=== PATIENT | female | born 1965 | race Caucasian/White ===

== ENCOUNTER → 2020-05-25 15:15 | Outpatient (BNVA) | payer OTHER, SELFPAY | PROVIDERS: PCP Internal Medicine; Referring Provider Internal Medicine; Visit Provider Internal Medicine | DX: Z76.89 Persons encountering health services in other specified circumstances (principal) ==

== ENCOUNTER 2020-05-26 11:09 | Outpatient (REF) | payer OTHER, SELFPAY ==
[2020-05-26 15:04] LABS: Albumin Level 4.3 g/dL (3.5-5.0); Calcium 9.2 mg/dL (8.4-10.2); Phosphorus 3.1 mg/dL (2.7-4.5)
[2020-05-26 15:26] LABS: Free T4 (Free Thyroxine) 1.15 ng/dL (0.71-1.85); Thyroid Stimulating Hormone 3.09 mIU/mL (0.32-4.0); Vitamin D 25-OH Total 11.9 ng/mL (>30)
[2020-05-27 13:11] LABS: Calcium (PTHI) 9.2 mg/dL (8.6-10.4); PTHI 64 pg/mL (14-64)
[2020-05-30 13:42] LABS: Alkaline Phosphatase Bone 11.8 mcg/L (5.6-29.0)
[2020-05-30 14:51] LABS: Prot Elec - Albumin 4.1 g/dL (3.8-4.8); Prot Elec - Alpha1 0.3 g/dL (0.2-0.3); Prot Elec - Alpha2 0.8 g/dL (0.5-0.9); Prot Elec - Beta 1 0.5 g/dL (0.4-0.6); Prot Elec - Beta 2 0.4 g/dL (0.2-0.5)
== END 2020-05-26 11:10 | disposition home or self-care (01) ==
LOC: HO.10HDL 11:09
PROVIDERS: Visit Provider Internal Medicine
DX: M81.0 Age-related osteoporosis without current pathological fracture (principal); E55.9 Vitamin D deficiency, unspecified
CPT/HCPCS: 36415; 82040; 82306; 82310; 82330; 83970; 84075; 84100; 84155; 84165; 84439; 84443

== ENCOUNTER 2020-05-28 | Outpatient (REF) | payer OTHER, SELFPAY ==
[2020-05-28 11:13] LABS: Total Volume 24 Hour Urine 2350 mL
[2020-05-28 11:38] LABS: Creatinine, 24Hr Urine 0.9 G/Day (1.0-2.0); Creatinine, mg/dL 36.91
[2020-05-29 21:52] LABS: Calcium, 24 Hr Urine 54 mg/24 h; Calcium/Creatinine Ratio 62 mg/g creat (30-275); Creatinine 24Hr Urine 0.87 g/24 h (0.50-2.15)
[2020-06-03 07:22] LABS: N-Telopeptide 51 (see note); NTXCreaRU 66 mg/dL (20-275)
== END 2020-05-28 00:01 | disposition home or self-care (01) ==
LOC: HO.LNP
PROVIDERS: Visit Provider Internal Medicine
DX: M81.0 Age-related osteoporosis without current pathological fracture (principal)
CPT/HCPCS: 82340; 82523; 82570

== ENCOUNTER → 2020-07-25 08:30 | Outpatient (BNVA) | payer OTHER, SELFPAY | PROVIDERS: PCP Internal Medicine; Visit Provider Internal Medicine | DX: Z76.89 Persons encountering health services in other specified circumstances (principal) ==

== ENCOUNTER → 2020-09-14 13:27 | Outpatient (BNVA) | payer OTHER, SELFPAY | PROVIDERS: PCP Internal Medicine; Visit Provider Internal Medicine ==

== ENCOUNTER 2021-06-16 10:21 | Outpatient (REF) | payer OTHER, SELFPAY ==
[2021-06-16 10:24] LABS: MANUAL DIFF FLAG NO
[2021-06-16 10:29] LABS: Basophils Absolute Auto 0.1 X10*3/uL (0.0-0.2); Eosinophils Absolute Auto 0.3 X10*3/uL (0.0-0.4); Eosinophils Percent Auto 5.5 % (0-4); Hematocrit 46.3 % (37.0-47.0); Hemoglobin 14.5 g/dl (12.0-16.0); Imm Gran Abs Auto 0.01 X10*3/uL (0.00-0.03); Imm Gran Pct Auto 0.2 % (0.0-0.4); Lymphocytes Absolute Auto 2.4 X10*3/uL (1.2-4.9); Lymphocytes Percent Auto 41.5 % (20-40); Mean Corpuscular HGB Conc 31.3 g/dl (31.0-35.0); Mean Corpuscular Hemoglobin 30.4 pg (27.0-33.0); Mean Corpuscular Volume 97.1 fL (80.0-98.0); Mean Platelet Volume 11.8 fL (9.4-12.3); Monocytes Absolute Auto 0.5 X10*3/uL (0.1-1.2); Monocytes Percent Auto 9.3 % (2-11); Neutrophils Absolute Auto 2.5 x10*3/uL (2.0-8.3); Neutrophils Percent Auto 42.5 % (45-73); Platelet Count 233 X10*3/uL (160-400); Red Blood Count 4.77 X10*6/uL (4.20-5.50); Red Cell Distribution Width 13.2 % (11.0-16.0); White Blood Count 5.8 X10*3/uL (4.8-10.8)
[2021-06-16 10:50] LABS: Alanine Aminotransferase 24 U/L (0-31); Albumin Level 4.2 g/dL (3.5-5.0); Alkaline Phosphatase 67 U/L (39-117); Anion Gap 10 (12-20); Aspartate Amino Transferase 23 U/L (5-31); Bilirubin Total 0.5 mg/dL (0.0-1.0); Blood Urea Nitrogen 10 mg/dL (9-16); Calcium 9.5 mg/dL (8.4-10.2); Carbon Dioxide 31 mmol/L (22-29); Chloride 106 mmol/L (96-108); Cholesterol 185 mg/dL; Estimated Glomerular Filt Rate > 60; Glucose Fasting 92 mg/dL (60-99); HDL Cholesterol 53 mg/dL; LDL Cholesterol Calculated 118 mg/dl; Potassium 4.8 mmol/L (3.3-5.1); Sodium 142 mmol/L (135-145); Total Protein 6.8 g/dL (6.5-8.0); Triglycerides 72 mg/dL
[2021-06-16 10:54] LABS: Appearance Urine CLEAR; Color Urine YELLOW; Glucose Urine UA NEG (NEG); Leukocyte Esterase Urine NEG (NEG); Nitrite Urine NEG (NEG); Urine Blood TRACE (NEG); Urine Ketones NEG (NEG); Urine Protein NEG (NEG-TRACE)
[2021-06-16 11:10] LABS: RBC Urine 0-2 /HPF (0); Squamous Epithelial Cell Urine 1+ /LPF; WBC Urine 0 /HPF (0-4)
[2021-06-16 11:12] LABS: Vitamin D 25-OH Total 27.9 ng/mL (>30)
[2021-06-16 11:39] LABS: Reflex LDLD? No
== END 2021-06-16 10:22 | disposition home or self-care (01) ==
LOC: HO.LNP 10:21
PROVIDERS: Visit Provider Internal Medicine
DX: Z00.00 Encounter for general adult medical examination without abnormal findings (principal); E55.9 Vitamin D deficiency, unspecified; D72.820 Lymphocytosis (symptomatic); M81.0 Age-related osteoporosis without current pathological fracture
CPT/HCPCS: 80053; 80061; 81001; 82306; 85025

== ENCOUNTER 2021-10-20 10:58 | Outpatient (REF) | payer OTHER, SELFPAY ==
[2021-10-20 12:00] LABS: Hematocrit 44.2 % (37.0-47.0); Hemoglobin 13.8 g/dl (12.0-16.0); Mean Corpuscular HGB Conc 31.2 g/dl (31.0-35.0); Mean Corpuscular Hemoglobin 30.9 pg (27.0-33.0); Mean Corpuscular Volume 98.9 fL (80.0-98.0); Mean Platelet Volume 10.6 fL (9.4-12.3); Platelet Count 231 X10*3/uL (160-400); Red Blood Count 4.47 X10*6/uL (4.20-5.50); Red Cell Distribution Width 13.1 % (11.0-16.0); White Blood Count 5.7 X10*3/uL (4.8-10.8)
[2021-10-20 12:40] LABS: Anion Gap 11 (12-20); Blood Urea Nitrogen 14 mg/dL (9-16); Calcium 9.9 mg/dL (8.4-10.2); Carbon Dioxide 30 mmol/L (22-29); Chloride 103 mmol/L (96-108); Estimated Glomerular Filt Rate > 60; Glucose Random 86 mg/dL (60-115); Sodium 139 mmol/L (135-145)
== END 2021-10-20 10:59 | disposition home or self-care (01) ==
LOC: HO.LAB 10:58
PROVIDERS: PCP Internal Medicine; Visit Provider Otolaryngology
DX: R49.0 Dysphonia (principal)
CPT/HCPCS: 36415; 80048; 85027

== ENCOUNTER 2022-01-19 12:12 | Outpatient (REF) | payer OTHER, SELFPAY ==
[2022-01-19 12:57] LABS: Cholesterol 182 mg/dL; HDL Cholesterol 57 mg/dL; LDL Cholesterol Calculated 107 mg/dl; Triglycerides 91 mg/dL
== END 2022-01-19 12:13 | disposition home or self-care (01) ==
LOC: HO.LNP 12:12
PROVIDERS: Visit Provider Internal Medicine
DX: I70.0 Atherosclerosis of aorta (principal)
CPT/HCPCS: 80061

== ENCOUNTER 2022-06-26 11:54 | Outpatient (REF) | payer OTHER, SELFPAY ==
[2022-06-26 11:56] LABS: MANUAL DIFF FLAG NO
[2022-06-26 12:16] LABS: Basophils Absolute Auto 0.1 X10*3/uL (0.0-0.2); Eosinophils Absolute Auto 0.4 X10*3/uL (0.0-0.4); Eosinophils Percent Auto 6.4 % (0-4); Hematocrit 45.8 % (37.0-47.0); Hemoglobin 14.4 g/dl (12.0-16.0); Imm Gran Abs Auto 0.01 X10*3/uL (0.00-0.03); Imm Gran Pct Auto 0.2 % (0.0-0.4); Lymphocytes Absolute Auto 2.4 X10*3/uL (1.2-4.9); Lymphocytes Percent Auto 40.4 % (20-40); Mean Corpuscular HGB Conc 31.4 g/dl (31.0-35.0); Mean Corpuscular Hemoglobin 31.2 pg (27.0-33.0); Mean Corpuscular Volume 99.1 fL (80.0-98.0); Mean Platelet Volume 11.3 fL (9.4-12.3); Monocytes Absolute Auto 0.5 X10*3/uL (0.1-1.2); Monocytes Percent Auto 8.2 % (2-11); Neutrophils Absolute Auto 2.6 x10*3/uL (2.0-8.3); Neutrophils Percent Auto 43.8 % (45-73); Platelet Count 199 X10*3/uL (160-400); Red Blood Count 4.62 X10*6/uL (4.20-5.50); Red Cell Distribution Width 13.2 % (11.0-16.0)
[2022-06-26 12:18] LABS: Appearance Urine Clear; Color Urine Yellow; Glucose Urine UA Negative (Negative); Leukocyte Esterase Urine Small (1+) (Negative); Nitrite Urine Negative (Negative); UMIC TRIGGER UA YES; Urine Blood Trace (Negative); Urine Ketones Negative (Negative); Urine Protein Negative (Neg-Trace)
[2022-06-26 12:26] LABS: Bacteria Urine None Seen (None Seen); Hyaline Casts Urine 0-2 /LPF (0-2); RBC Urine 0-2 /HPF (0-2); WBC Urine 0-5 /HPF (0-5)
[2022-06-26 12:31] LABS: Alanine Aminotransferase 38 U/L (0-31); Albumin Level 4.3 g/dL (3.5-5.0); Alkaline Phosphatase 80 U/L (39-117); Anion Gap 14 (12-20); Aspartate Amino Transferase 31 U/L (5-31); Bilirubin Total 0.7 mg/dL (0.0-1.0); Blood Urea Nitrogen 23 mg/dL (9-16); Calcium 9.5 mg/dL (8.4-10.2); Carbon Dioxide 28 mmol/L (22-29); Chloride 104 mmol/L (96-108); Cholesterol 143 mg/dL; Estimated Glomerular Filt Rate > 60; Glucose Fasting 84 mg/dL (60-99); HDL Cholesterol 58 mg/dL; LDL Cholesterol Calculated 74 mg/dl; Potassium 4.6 mmol/L (3.3-5.1); Sodium 141 mmol/L (135-145); Total Protein 7.1 g/dL (6.5-8.0); Triglycerides 58 mg/dL
[2022-06-26 12:53] LABS: Vitamin D 25-OH Total 24.7 ng/mL (>30)
== END 2022-06-26 11:55 | disposition home or self-care (01) ==
LOC: HO.LNP 11:54
PROVIDERS: Visit Provider Internal Medicine
DX: Z00.00 Encounter for general adult medical examination without abnormal findings (principal); E55.9 Vitamin D deficiency, unspecified; D72.820 Lymphocytosis (symptomatic)
CPT/HCPCS: 80053; 80061; 81001; 82306; 85025

== ENCOUNTER 2022-07-03 16:16 | Outpatient (REF) | payer OTHER, SELFPAY ==
[2022-07-03 16:42] LABS: Blood Urea Nitrogen 10 mg/dL (9-16)
== END 2022-07-03 16:17 | disposition home or self-care (01) ==
LOC: HO.LNP 16:16
PROVIDERS: Visit Provider Internal Medicine
DX: R79.9 Abnormal finding of blood chemistry, unspecified (principal)
CPT/HCPCS: 84520

== ENCOUNTER 2023-06-27 10:31 | Outpatient (REF) | payer OTHER, SELFPAY ==
[2023-06-27 10:36] LABS: MANUAL DIFF FLAG NO
[2023-06-27 10:42] LABS: Basophils Absolute Auto 0.1 X10*3/uL (0.0-0.2); Basophils Percent Auto 1.5 % (0-2); Eosinophils Absolute Auto 0.5 X10*3/uL (0.0-0.4); Eosinophils Percent Auto 8.5 % (0-4); Hematocrit 45.5 % (37.0-47.0); Hemoglobin 14.2 g/dl (12.0-16.0); Imm Gran Abs Auto 0.01 X10*3/uL (0.00-0.03); Imm Gran Pct Auto 0.2 % (0.0-0.4); Lymphocytes Absolute Auto 2.2 X10*3/uL (1.2-4.9); Lymphocytes Percent Auto 35.7 % (20-40); Mean Corpuscular HGB Conc 31.2 g/dl (31.0-35.0); Mean Corpuscular Hemoglobin 30.7 pg (27.0-33.0); Mean Corpuscular Volume 98.5 fL (80.0-98.0); Mean Platelet Volume 11.4 fL (9.4-12.3); Monocytes Absolute Auto 0.5 X10*3/uL (0.1-1.2); Monocytes Percent Auto 8.2 % (2-11); Neutrophils Absolute Auto 2.8 x10*3/uL (2.0-8.3); Neutrophils Percent Auto 45.9 % (45-73); Platelet Count 228 X10*3/uL (160-400); Red Blood Count 4.62 X10*6/uL (4.20-5.50); Red Cell Distribution Width 13.2 % (11.0-16.0); White Blood Count 6.1 X10*3/uL (4.8-10.8)
[2023-06-27 10:49] LABS: Appearance Urine Clear; Color Urine Yellow; Glucose Urine UA Negative (Negative); Leukocyte Esterase Urine Negative (Negative); Nitrite Urine Negative (Negative); PH 5.5 (5.0-9.0); UMIC TRIGGER UACC YES; Urine Blood Trace (Negative); Urine Ketones Negative (Negative); Urine Protein Negative (Neg-Trace)
[2023-06-27 10:53] LABS: Bacteria Urine None Seen (None Seen); RBC Urine 0-2 /HPF (0-2); Squamous Epithelial Cell Urine 0-2 /HPF (0-2); WBC Urine 0-5 /HPF (0-5)
[2023-06-27 10:59] LABS: Alanine Aminotransferase 24 U/L (0-31); Albumin Level 4.2 g/dL (3.5-5.0); Alkaline Phosphatase 65 U/L (39-117); Anion Gap 12 (12-20); Aspartate Amino Transferase 24 U/L (5-31); Bilirubin Total 0.5 mg/dL (0.0-1.0); Blood Urea Nitrogen 17 mg/dL (9-16); Calcium 9.5 mg/dL (8.4-10.2); Carbon Dioxide 28 mmol/L (22-29); Chloride 105 mmol/L (96-108); Cholesterol 185 mg/dL (<200); Estimated Glomerular Filt Rate > 60; Glucose Fasting 95 mg/dL (60-99); HDL Cholesterol 52 mg/dL (>40); LDL Cholesterol Calculated 118 mg/dL (<100); Sodium 141 mmol/L (135-145); Total Protein 7.5 g/dL (6.5-8.0); Triglycerides 77 mg/dL (<150)
[2023-06-27 11:17] LABS: Vitamin D 25-OH Total 38.7 ng/mL (>30)
== END 2023-06-27 10:32 | disposition home or self-care (01) ==
LOC: HO.LNP 10:31
PROVIDERS: Visit Provider Internal Medicine
DX: Z00.00 Encounter for general adult medical examination without abnormal findings (principal); D72.829 Elevated white blood cell count, unspecified; E55.9 Vitamin D deficiency, unspecified; I70.0 Atherosclerosis of aorta
CPT/HCPCS: 80053; 80061; 81001; 82306; 85025

== ENCOUNTER 2024-07-02 11:25 | Outpatient (REF) | payer OTHER, SELFPAY ==
[2024-07-02 11:33] LABS: MANUAL DIFF FLAG NO
[2024-07-02 12:08] LABS: Basophils Absolute Auto 0.1 X10*3/uL (0.0-0.2); Basophils Percent Auto 1.3 % (0-2); Eosinophils Absolute Auto 0.5 X10*3/uL (0.0-0.4); Eosinophils Percent Auto 7.6 % (0-4); Hematocrit 48.6 % (37.0-47.0); Hemoglobin 15.3 g/dl (12.0-16.0); Imm Gran Abs Auto 0.02 X10*3/uL (0.00-0.03); Imm Gran Pct Auto 0.3 % (0.0-0.4); Lymphocytes Absolute Auto 2.9 X10*3/uL (1.2-4.9); Lymphocytes Percent Auto 41.5 % (20-40); Mean Corpuscular HGB Conc 31.5 g/dl (31.0-35.0); Mean Corpuscular Hemoglobin 30.9 pg (27.0-33.0); Mean Corpuscular Volume 98.2 fL (80.0-98.0); Mean Platelet Volume 10.8 fL (9.4-12.3); Monocytes Absolute Auto 0.5 X10*3/uL (0.1-1.2); Monocytes Percent Auto 6.9 % (2-11); Neutrophils Absolute Auto 2.9 x10*3/uL (2.0-8.3); Neutrophils Percent Auto 42.4 % (45-73); Platelet Count 233 X10*3/uL (160-400); Red Blood Count 4.95 X10*6/uL (4.20-5.50); Red Cell Distribution Width 13.2 % (11.0-16.0); White Blood Count 6.9 X10*3/uL (4.8-10.8)
[2024-07-02 12:40] LABS: Alanine Aminotransferase 31 U/L (0-31); Albumin Level 4.3 g/dL (3.5-5.0); Alkaline Phosphatase 84 U/L (39-117); Anion Gap 14 (12-20); Aspartate Amino Transferase 37 U/L (5-31); Bilirubin Total 0.7 mg/dL (0.0-1.0); Blood Urea Nitrogen 17 mg/dL (9-16); Calcium 9.7 mg/dL (8.4-10.2); Carbon Dioxide 30 mmol/L (22-29); Chloride 105 mmol/L (96-108); Cholesterol 215 mg/dL (<200); Estimated Glomerular Filt Rate 57; Glucose Fasting 97 mg/dL (60-99); HDL Cholesterol 59 mg/dL (>40); LDL Cholesterol Calculated 142 mg/dL (<100); Potassium 4.6 mmol/L (3.3-5.1); Sodium 144 mmol/L (135-145); Total Protein 7.9 g/dL (6.5-8.0); Triglycerides 74 mg/dL (<150)
[2024-07-02 12:48] LABS: Vitamin D 25-OH Total 35.8 ng/mL (>30)
== END 2024-07-02 11:26 | disposition home or self-care (01) ==
LOC: HO.LNP 11:25
PROVIDERS: Visit Provider Internal Medicine
DX: Z00.00 Encounter for general adult medical examination without abnormal findings (principal); E55.9 Vitamin D deficiency, unspecified; D72.820 Lymphocytosis (symptomatic)
CPT/HCPCS: 80053; 80061; 82306; 85025

== ENCOUNTER 2024-07-09 15:54 | Outpatient (REF) | payer OTHER, SELFPAY ==
--- OUTSIDE RECORDS SUMMARY | 2024-07-09 15:58 | XMS_ITS ---
Author Organization Anderson Maria MD Address [address] [place] [phone] Care Team Providers Care Senior Director Name Role Phone Anderson Maria Primary Care Provider REASON FOR VISIT refill MEDICATIONS Medication SIG (Take, Route, Frequency, Duration) Notes Start Date End Date Status Albuterol Sulfate HFA 108 (90 Base) MCG/ACT INHALE TWO PUFFS BY MOUTH EVERY 4-6 HOURS NEEDED Inhalation every 4 hrs for 30 days Active Encounters Encounter Location Date Provider Diagnosis Anderson Maria MD [address] [facility] [address] [place] [phone] 05/14/2024 Anderson Maria PLAN OF TREATMENT Medication Medication Name Sig Start Date Stop Date Notes Albuterol Sulfate HFA 108 (9 0 Base) MCG/ACT INHALE TWO PUFFS BY MOUTH EVERY 4-6 HOURS NEEDED Inhalation every 4 hrs for 30 days Next Appt Details Provider Name:Anderson nava, 07/09/2025 07:00:00 AM, [address], Suite [facility], [place], [place], [phone], Provider Name:Anderson nava, 07/16/2025 11:00:00 AM, [address] [place] [address] Drive, [address], RANDI Shankar, [phone],
--- OUTSIDE RECORDS SUMMARY | 2024-07-09 15:58 | XMS_ITS ---
Author Organization Anderson Maria MD Address [address] [place], [place] [phone] Care Team Providers Care Front Office Associate Name Role Phone Anderson Maria Primary Care Provider ALLERGIES Allergen (clinical drug ingredient) Drug/Non Drug Allergy documented on EMR Reaction Allergy Type Onset Date Status morphine Morphine Sulfate headache Drug Allergy Active hydromorphone Dilaudid headache Drug Allergy Act manny acetaminophen / oxycodone percocet (uncoded) vomiting Allergy Active carisoprodol soma (uncoded) vomiting Allergy Ac tive tylox (uncoded) vomiting Allergy Acti ve REASON FOR REFERRAL Reason needs colonoscopy Diagnosis 1 Colon cancer screeni (Z12.11) Referral Organization Anderson Maria MD Referring Provider First Name Anderson Referring Provider Last Name Crow Referring Provider Speciality Internal M edicine Referred Provider Hugh Johns Referred Provider Specialty Gastroentero logy General Notes Jacqui Marrero 11:37:08 AM EST > info faxed Referral Priority Routine REASON FOR VISIT ANNUAL EXAM MEDICATIONS Medication SIG (Take, Route, Frequency, Duration) Notes Start Date End Date Status Fluticasone Propionate (Inhal) 50 MCG/ACT 1 puff Inhalation Twice a day Active Fluticasone-Salmeterol 500-50 MCG/ACT INHALE ONE PUFF TWO TIMES A DAY for 30 Active Albuterol Sulfate HFA 108 (90 Base) MCG/ACT INHALE TWO PUFFS BY MOUTH EVERY 4-6 HOURS NEEDED Inhalation every 4 hrs for 30 days Active Hydrocortisone Mitchel-Pramoxine 2.5-1 % 1 application to affected area as needed Rectal once times a day for 30 days 10/11/2014 Not-Taking SOCIAL HISTORY Tobacco Use: Social History Observation Description Date Details (start date - stop date) Former Smoker NA - NA Sex Assigned At : Social History Observation Description Sex Assigned At Unknown Tobacco Use/Smoking Question Answer Notes Patient is a former smoker How long has it been since y ou last smoked? > 10 years Additional Findings: Tobacco Non-User Fo rmer smoker, currently using no form of tobacco Alcohol Screen Question Answer Notes Did you have a drink contain ing alcohol in the past year? Yes How often did you have a dri nk containing alcohol in the past year? Monthly or less (1 point) How many drinks did you have on a typical day when you were drinking in the past year? 1 or 2 drinks (0 point) How often did you have 6 or more drinks on one occasion in the past year? Never (0 point) Points 1 Interpretation Negative VITAL SIGNS BMI 28.12 kg/m2 07/09/2024 Blood pressure systolic 124 mm Hg 07/09/20 24 Blood pressure diastolic 70 mm Hg 024 Height 60 in 07/09/2024 Weight 144 lbs 07/09/2024 Encounters Encounter Location Date Provider Diagnosis Anderson Maria MD [address] [place] [address] [place] [phone] 07/09/2024 Anderson Maria Annual visit for general adult medical examination with abnormal findings Z00.01 ; De Quervain's tenosynovitis M65.4 and Subcutaneous nodule R22.9 ASSESSMENTS Encounter Date Diagnosis Assessment Notes Treatment Notes Treatment Clinical Notes 07/09/2024 Annual visit for general adult medical examination with abnormal findings (ICD-10 - Z00.01) needs appt with dr johns for colonoscopy 07/09/2024 De Quervain's tenosynovitis (ICD-10 - M65.4) if it gets worse to send to [facility] 07/09/2024 Subcutaneous nodule (ICD-10 - R22.9) feels benign will just observe PLAN OF TREATMENT Treatment Notes Assessment Notes Annual visit for general arjun lt medical examination with abnormal findings needs appt with dr johns for colonoscopy De Quervain's tenosynovitis if it gets w orse to send to [facility] Subcutaneous nodule feels benign will karma st observe Pending Test Test Name Order Date UA ClnCatch+Micro w/rflx Cult 07/09/2024 Referrals Referral Date Details needs colonoscopy , Hugh Johns Next Appt Details Follow Up: 1 Year, Reason: Provider Name:Anderson Farris ier, 07/09/2025 07:00:00 AM, [address], [address], [place], [place], [phone], Provider Name:Anderson Farris ier, 07/16/2025 11:00:00 AM, [address] [facility], [address], [place], [place], [phone], Progress Notes * Examination Category Sub-Category Detail Notes General Examination GENERAL APPEARANCE: well dev eloped, well nourished, in no acute distress HEAD: normocephalic, atrau matic EYES: pupils equal, round, reactive to light and accommodation, sclera non- icteric EARS: normal THROAT: clear NECK/THYROID: neck supple, full ra nge of motion, no cervical lymphadenopathy, no bruits HEART: regular rate and rhy thm, S1, S2 normal, no murmurs LUNGS: clear to auscultatio n bilaterally ABDOMEN: soft, nontender, non distended, bowel sounds present, normal, no organomegaly , no masses palpable NEUROLOGIC: nonfocal, motor stre ngth normal upper and lower extremities, sensory exam intact SKIN: warm and dry, no dereje picious lesions EXTREMITIES: no clubbing, cyanosi s, or edema BREASTS: No mass, no lump RECTAL EXAM: no masses palpable , stool guaiac negative FEMALE GENITOURINARY: rt labia majora wi th a 3 mm sub cutaneous nodule ORAL CAVITY: mucosa moist History and Physical Notes * HPI (History of Present Illness) Category Sub-Category Detail Notes Depression Screening PHQ-9 Little inte rest or pleasure in doing things: Not at all Feeling down, depressed, or hopeless: No t at all Trouble falling or staying asleep, or sl eeping too much: Not at all Feeling tired or having little energy: N ot at all Poor appetite or overeating: Not at all Feeling bad about yourself o r that you are a failure, or have let yourself or your family down: Not at all Trouble concentrating on thi ngs, such as reading the newspaper or watching television: Not at all Moving or speaking so slowly that other people could have noticed; or the opposite, being so fidgety or restless that you have been moving around a lot more than usual: Not at all Thoughts that you would be b alicia off or of hurting yourself in some way: Not at all Total Score: 0 Interpretation and Intervention Depression Angela almaraz Findings: Negative Follow-Up for Depression: : review of PH Q-9 found negative result, no follow-up needed SDOH Questions SDOH Questions In the past year have you been worried about losing housing?: No In the past year have you or any family members you live with been unable to get any of the following when it was really needed? Check all that apply:: None Communication Needs Communication Needs Does the patient have a hearing impairment: No Does the patient have a vision impairmen t?: Yes ?If yes, what is the vision impairment?: Glasses Does the patient have a cognition impair ment?: No Consultation Request Notes Referral Date Referring Provider Referred Provider Not paresh 07/09/2024 Anderson Maria Robert needs colo noscopy
--- OUTSIDE RECORDS SUMMARY | 2024-07-09 15:58 | XMS_ITS ---
Author Organization Anderson Maria MD Address [address] [place], [place] [phone] Care Team Providers Care Industrial Psychology Teacher Name Role Phone Anderson Maria Primary Care Provider [phone] RESULTS Component Value Reference Range Notes Complete Blood Count Auto Di ff Reviewed date:07/02/2024 12:51:24 PM Interpretation: Performing Lab:[facility], [address] [place] [phone] Notes/Report: White Blood Count 6.9 4.8-10.8 X10*3/uL Red Blood Count 4.95 4.20-5.50 X10*6/uL Hemoglobin 15.3 12.0-16.0 g/dl Hematocrit 48.6 37.0-47.0 % Mean Corpuscular Volume 98.2 80.0-98.0 fL Mean Corpuscular Hemoglobin 30.9 27.0-33.0 pg Mean Corpuscular HGB Conc 31.5 31.0-35.0 g/dl Red Cell Distribution Width 13.2 11.0-16.0 % Platelet Count 233 160-400 X10*3/uL Mean Platelet Volume 10.8 9.4-12.3 fL Neutrophils Percent Auto 42.4 45-73 % Imm Gran Pct Auto 0.3 0.0-0.4 % Lymphocytes Percent Auto 41.5 20-40 % Monocytes Percent Auto 6.9 2-11 % Eosinophils Percent Auto 7.6 0-4 % Basophils Percent Auto 1.3 0-2 % NRBC Pct Auto 0.0 0.0-0.2 /100WBC Neutrophils Absolute Auto 2.9 2.0-8.3 x10*3/u L Imm Gran Abs Auto 0.02 0.00-0.03 X10*3/uL Lymphocytes Absolute Auto 2.9 1.2-4.9 X10*3/u L Monocytes Absolute Auto 0.5 0.1-1.2 X10*3/uL Eosinophils Absolute Auto 0.5 0.0-0.4 X10*3/u L Basophils Absolute Auto 0.1 0.0-0.2 X10*3/uL NRBC Abs Auto 0.000 0.0-0.012 X10*3/uL Comprehensive [place]. Panel Fa st Reviewed date:07/02/2024 03:33:41 PM Interpretation: Performing Lab:[facility], [address] [place] [phone] Notes/Report: Sodium 144 135-145 mmol/L Potassium 4.6 3.3-5.1 mmol/L Chloride 105 96-108 mmol/L Carbon Dioxide 30 22-29 mmol/L Anion Gap 14 12-20 Blood Urea Nitrogen 17 9-16 mg/dL Creatinine 0.99 0.5-1.4 mg/dL Estimated Glomerular Filt Rate 57 Chronic Kidney Disease: Estimated GFR < 60 mL/min/1.73m2 Severe Kidney Disease: Estimated GFR < 15 mL/min/1.73m2 Glucose Fasting 97 60-99 mg/dL Calcium 9.7 8.4-10.2 mg/dL Bilirubin Total 0.7 0.0-1.0 mg/dL Aspartate Amino Transferase 37 5-31 U/L Alanine Aminotransferase 31 0-31 U/L Total Protein 7.9 6.5-8.0 g/dL Albumin Level 4.3 3.5-5.0 g/dL Alkaline Phosphatase 84 39-117 U/L Lipid Panel Reviewed date:07/02/2024 12:52:39 PM Interpretation: Performing Lab:[facility], [address] [place] [phone] Notes/Report: Triglycerides 74 <150 mg/dL Desirable Triglyceride: less than 150 mg/dL Borderline High Triglyceride 150-199 mg/dL High Triglyceride: 200-499 mg/dL Very High Triglyceride: greater than or equal to 5OO mg/dL Cholesterol 215 <200 mg/dL Desirable Cholesterol: less than 200 mg/dL Borderline High Cholesterol: 200-239 mg/dL High Cholesterol: greater than 239 mg/dL LDL Cholesterol Calculated 142 <100 mg/dL Desirable LDL: less than 100 mg/dL Near Optimal/Above Optimal LDL: 110-129 mg/dL Borderline High LDL: 130-159 mg/dL High LDL: 160-189 mg/dL Very High LDL: greater than or equal to 190 mg/dL HDL Cholesterol 59 >40 mg/dL Desirable HDL: greater than 40 mg/dL Note: This HDL assay may give artificially low results in patients with liver disease. Vitamin D 25-OH Total Reviewed date:07/02/2024 12:53:43 PM Interpretation: Performing Lab:[facility], [address] [place] [phone] Notes/Report: Vitamin D 25-OH Total 35.8 >30 ng/mL Health Based Reference Values* < 20 ng/mL Deficient 20-30 ng/mL Insufficient > 30 ng/mL Sufficient *Malina FISHER. N Engl J Med. 2007;357:266-280 Care must be taken in interpreting Vitamin D results from different laboratories and methodologies. Published data demonstrated that results from patients undergoing hemodialysis may show a negative bias when tested with various automated 25-OH vitamin D assays when compared to LC-MS/MS. When testing samples from patients whose predominant form of Vitamin D is Vitamin D2, such as patients receiving Vitamin D2 supplementation, results that are subtherapeutic should be confirmed with another method such as LC-MS/MS. REASON FOR VISIT ANNUAL FASTING LABS Encounters Encounter Location Date Provider Diagnosis Anderson Maria MD [address] [place] [address] Drive [address] [place], [place] [phone] 07/02/2024 Anderson Maria Blood tests for routine general physical examination Z00.00 ; Lymphocytosis D72.820 and Vitamin D deficiency E55.9 ASSESSMENTS Encounter Date Diagnosis Assessment Notes Treatment Notes Treatment Clinical Notes 07/02/2024 Blood tests for routine general physical examination (ICD-10 - Z00.00) 07/02/2024 Lymphocytosis (ICD-1 0 - D72.820) 07/02/2024 Vitamin D deficiency (ICD-10 - E55.9) PLAN OF TREATMENT Pending Test Test Name Order Date UA ClnCatch+Micro w/rflx Cult 07/02/2024 Next Appt Details Provider Name:Anderson nava, 07/09/2025 07:00:00 AM, [address] [place] [address], [address], [place], [place], [phone], Provider Name:Anderson nava, 07/16/2025 11:00:00 AM, [address] [place] [address], [address], [place], [place], [phone],
--- OUTSIDE RECORDS SUMMARY | 2024-07-09 15:58 | XMS_ITS | Patient Health Record ---
Author Organization Anderson Maria MD Address [address] [place], [place] [phone] Care Team Providers Care Regulatory And Compliance Technician Name Role Phone Anderson Maria Primary Care Provider [phone] ALLERGIES Allergen (clinical drug ingredient) Drug/Non Drug Allergy documented on EMR Reaction Allergy Type Onset Date Status morphine Morphine Sulfate headache Drug Allergy Active hydromorphone Dilaudid headache Drug Allergy Act manny acetaminophen / oxycodone percocet (uncoded) vomiting Allergy Active carisoprodol soma (uncoded) vomiting Allergy Ac tive tylox (uncoded) vomiting Allergy Acti ve RESULTS Component Value Reference Range Notes MAMMOGRAM DIGITAL BILATERAL SCREEN Reviewed date:04/23/2024 11:55:04 AM Interpretation:Negative Performing Lab: Notes/Report: Negative Complete Blood Count Auto Di ff Reviewed date:07/02/2024 12:51:24 PM Interpretation: Performing Lab:[facility], [address] [place] [phone] Notes/Report: White Blood Count 6.9 4.8-10.8 X10*3/uL [...] NRBC Abs Auto 0.000 0.0-0.012 X10*3/uL Comprehensive [place]. Panel Fa st Reviewed date:07/02/2024 03:33:41 PM Interpretation: Performing Lab:[facility], [address] [place] [phone] Notes/Report: Sodium 144 135-145 mmol/L Potassium 4.6 [...] Panel Reviewed date:07/02/2024 12:52:39 PM Interpretation: Performing Lab:[address] [phone] Notes/Report: Triglycerides 74 <150 mg/dL Desirable Triglyceride: [...] Total Reviewed date:07/02/2024 12:53:43 PM Interpretation: Performing Lab:[address] [phone] Notes/Report: Vitamin D 25-OH Total 35.8 >30 [...] another method such as LC-MS/MS. REASON FOR REFERRAL Reason needs colonoscopy Diagnosis 1 Colon cancer screeni jeannie (Z12.11) Referral Organization Anderson Maria MD Referring Provider First Name Anderson Referring Provider Last Name Crow Referring Provider Speciality Internal M edicine Referred Provider Hugh Johns Referred Provider Specialty Gastroentero logy General Notes Jacqui Marrero 11:37:08 AM EST > info faxed Referral Priority Routine MEDICATIONS Medication SIG (Take, Route, Frequency, Duration) [...] a day for 30 days 10/11/2014 Not-Taking IMMUNIZATIONS Vaccine Route Administration Date Status Comme nts DECLINED, FLU Unknown 07/03/2013 Administered Flu Vaccine Unknown 10/11/2014 Refused PPSV23 (Pnemovax) Unknown 10/11/2014 Refused Flu Vaccine Unknown 05/02/2015 Refused Fluarix Quadrivalent Unknown 07/10/2016 Refused Fluarix Quadrivalent Unknown 06/16/2019 Refused PPSV23 (Pnemovax) Unknown 09/28/2019 Refused Fluarix Quadrivalent Unknown 05/05/2020 Refused TDaP Unknown 05/05/2020 Refused Covid Vaccine Unknown 06/29/2021 Refused Fluarix Quadrivalent Unknown 06/29/2021 Refused Fluarix Quadrivalent Unknown 06/27/2023 Refused SOCIAL HISTORY Tobacco Use: Social History Observation [...] Never (0 point) Points 1 Interpretation Negative PROBLEMS Problem Type ICD Code Onset Dates Problem Status W/U Status Risk SNOMED Code Notes Problem Age-related osteoporosis without current pathological fracture (M81.0) Active confirmed 28823331 Problem Lymphocytosis (D72.820) Active confirmed 69755143 Problem Atherosclerosis of abdominal aorta (I70.0) Active confirmed 421855472 Problem Vitamin D deficiency (E55.9) Active confirmed 42791585 Problem Panlobular emphysema (J43.1) Active confirmed 5768747 Problem Lumbar disc disease (M51.9) Active confirmed 406553718 Problem Vaginal bleeding (N93.9) Active confirmed 907978227 Problem Grief (F43.20) Active confirmed 7095278 09 Problem Acute asthma (J45.909) Active confirmed Acute asthma (799962075) Problem Disorder of lingual tonsil (J35.9) Active confirmed 255663472 VITAL SIGNS Blood pressure diastolic 70 mm Hg 07/09/2024 Height 60 in 07/09/2024 Blood pressure systolic 124 mm Hg 07/09/2024 Weight 144 lbs 07/09/2024 BMI 28.12 kg/m2 07/09/2024 Encounters Encounter Location Date Provider Diagnosis Anderson Maria MD [address] [place] [id number] 07/09/2024 Anderson Maria Annual visit for general adult medical examination with abnormal findings Z00.01 ; De Quervain's tenosynovitis M65.4 and Subcutaneous nodule R22.9 Anderson Maria MD [address] [place] [id number] 07/02/2024 Anderson Maria Blood tests for routine general physical examination Z00.00 ; Lymphocytosis D72.820 and Vitamin D deficiency E55.9 Anderson Maria MD [address] [place] [address] Drive [address] [place] [id number] 11/21/2023 Anderson Maria Lumbar disc disease M51.9 Anderson Maria MD [address] [place] [id number] 08/02/2023 Anderson Maria Panlobular emphysema J43.1 Anderson Maria MD [address] [place] [id number] 11/04/2023 Anderson Maria Panlobular emphysema J43.1 Anderson Maria MD [address] [place] [id number] 11/18/2023 Anderson Maria MD [address] [place] [id number] 01/06/2024 Anderson Maria MD [address] [place] [id number] 01/06/2024 Anderson Maria Panlobular emphysema J43.1 Anedrson Maria MD [address] [place] [id number] 01/07/2024 Anderson Maria MD [address] [place] [id number] 05/14/2024 Anderson Maria ASSESSMENTS Encounter Date Diagnosis Assessment Notes Treatment Notes Treatment Clinical Notes 07/09/2024 De Quervain's tenosynovitis (ICD-10 - M65.4) if it gets worse to send to [facility] 07/09/2024 Annual visit for general adult medical examination with abnormal findings (ICD-10 - Z00.01) needs appt with dr johns for colonoscopy 07/02/2024 Lymphocytosis (ICD-10 - D72.820) 07/02/2024 Blood tests for routine general physical examination (ICD-10 - Z00.00) 11/21/2023 Lumbar disc disease (ICD-10 - M51.9) need ct report from .is getting better at present/ at present time she is improving/ REQUEST MADE TO [facility] FOR CT SCAN 08/02/2023 Panlobular emphysema (ICD-10 - J43.1) 11/04/2023 Panlobular emphysema (ICD-10 - J43.1) 01/06/2024 Panlobular emphysema (ICD-10 - J43.1) 07/09/2024 Subcutaneous nodule (ICD-10 - R22.9) feels benign will just observe 07/02/2024 Vitamin D deficiency (ICD-10 - E55.9) PLAN OF TREATMENT Pending Test Test Name Order Date Electrocardiogram (EKG) 10/20/2015 CARDIOVASCULAR STRESS TEST 10/20/2015 MRI LUMBAR SPINE NO CONTRAST 01/26/2020 BONE DENSITY DEXA 02/08/2020 CT soft tissue neck wo/w con 06/29/2021 UA ClnCatch+Micro w/rflx Cult 07/02/2024 UA ClnCatch+Micro w/rflx Cult 07/09/2024 Next Appt Details Provider Name:Anderson Farris ier, 07/09/2025 07:00:00 AM, [address] [place] [address], [address], [place], [phone], Provider Name:Anderson Farris ier, 07/16/2025 11:00:00 AM, [address] [place] [address], [address], [place], [place], [phone], Insurance Providers Payer Name Payer Address Payer Phone Subscriber Number Group Number Insured Name Patient Relationship to Insured Coverage Start Date Coverage End Date [employer] [address] [address] [place] [address] [phone] [id number] Shira Astudillo Self - patient is the insured MEDICAL (GENERAL) HISTORY Medical History History ICD Code Hysterectomy at age 39 [employer], Dr. Major, [facility] Mammo at [facility] 11/23/2013 - Colonoscopy with Dr. Johns - repeat [address] for hematuria in 2005
[2024-07-09 16:29] LABS: Appearance Urine Clear; Color Urine Yellow; Glucose Urine UA Negative (Negative); Leukocyte Esterase Urine Negative (Negative); Nitrite Urine Negative (Negative); PH 5.5 (5.0-9.0); Specific Gravity - Urine <= 1.005 (1.005-1.025); Urine Blood Negative (Negative); Urine Ketones Negative (Negative); Urine Protein Negative (Neg-Trace)
[2024-07-09 16:34] LABS: Bacteria Urine None Seen (None Seen); Hyaline Casts Urine 0-2 /LPF (0-2); RBC Urine 0-2 /HPF (0-2); Squamous Epithelial Cell Urine 0-2 /HPF (0-2); WBC Urine 0-5 /HPF (0-5)
== END 2024-07-09 15:55 | disposition home or self-care (01) ==
LOC: HO.LNP 15:54
PROVIDERS: Visit Provider Internal Medicine
DX: Z00.01 Encounter for general adult medical examination with abnormal findings (principal)
CPT/HCPCS: 81001

== ENCOUNTER 2025-02-05 07:56 | Day surgery (SDC) | payer OTHER, SELFPAY ==
--- OUTSIDE RECORDS SUMMARY | 2025-01-07 17:59 | XMS_ITS ---
Author Organization Anderson Maria MD Address [address] [place], [place] [id number] Care Team Providers Care Scrip Clerk Name Role Phone Anderson Maria Primary Care Provider Allergies Allergen (clinical drug ingredient) Drug/Non Drug Allergy documented on EMR Reaction Allergy Type Onset Date Status morphine Morphine Sulfate headache Drug Allergy Active hydromorphone Dilaudid headache Drug Allergy Act manny acetaminophen / oxycodone percocet (uncoded) vomiting Allergy Active carisoprodol soma (uncoded) vomiting Allergy Ac tive tylox (uncoded) vomiting Allergy Acti ve Results Component Value Reference Range Notes UA ClnCatch+Micro w/rflx Cul t Reviewed date:07/09/2024 04:50:56 PM Interpretation: Performing Lab:[facility], [address] [place] [id number] Notes/Report: Urine, Clean Catch Color Urine Yellow Appearance Urine Clear PH 5.5 5.0-9.0 Glucose Urine UA Negative Negative mg/dL Urine Blood Negative Negative Specific Sula - Urine <= 1.005 1.005-1.025 Urine Protein Negative Neg-Trace mg/dL Urine Ketones Negative Negative mg/dL Nitrite Urine Negative Negative Leukocyte Esterase Urine Negative Negative RBC Urine 0-2 0-2 /HPF WBC Urine 0-5 0-5 /HPF Squamous Epithelial Cell Urine 0-2 0-2 /HPF Bacteria Urine None Seen None Seen Hyaline Casts Urine 0-2 0-2 /LPF Reason For Referral Reason needs colonoscopy Diagnosis 1 Colon cancer screeni jeannie (Z12.11) Referral Organization Anderson Maria MD Referring Provider First Name Anderson Referring Provider Last Name Crow Referring Provider Speciality Internal M edicine Referred Provider Hugh Johns Referred Provider Specialty Gastroentero logy General Notes Jacqui Marrero 11:37:08 AM EST > info faxed , Jacqui Marrero 07/16/2024 01:49:48 PM EST > referral info mailed with letter Referral Priority Routine Referral Appointment Date 11/11/2024 REASON FOR VISIT ANNUAL EXAM Medications Medication SIG (Take, Route, Frequency, Duration) Notes [...] a day for 30 days 10/11/2014 Not-Taking Social History Tobacco Use: Social History Observation Description Date Details (start date - stop date) Former Smoker NA - NA Tobacco Use/Smoking Question Answer Notes Patient is [...] Never (0 point) Points 1 Interpretation Negative Vital Signs Blood pressure systolic 124 mm Hg 07/09/20 24 Blood pressure diastolic 70 mm Hg 024 Height 60 in 07/09/2024 Weight 144 lbs 07/09/2024 BMI 28.12 kg/m2 07/09/2024 Encounters Encounter Location Date Provider Diagnosis Anderson Maria MD [address] [place] [address] [place] [phone] 07/09/2024 Anderson Maria Annual visit for general adult medical examination with abnormal findings Z00.01 ; De Quervain's tenosynovitis M65.4 and Subcutaneous nodule R22.9 Assessments Encounter Date Diagnosis (ICD Code) Assessment Notes Treatment Notes Treatment Clinical Notes Section Notes 07/09/2024 Annual visit for general adult medical examination with abnormal findings (ICD-10 - Z00.01) needs appt with dr johns for colonoscopy 07/09/2024 De Quervain's tenosynovitis (ICD-10 - M65.4) if it gets worse to send to [facility] 07/09/2024 Subcutaneous nodule (ICD-10 - R22.9) feels benign will just observe Plan Of Treatment Treatment Notes Assessment Notes Annual visit for general arjun lt medical examination with abnormal findings needs appt with dr johns for colonoscopy De Quervain's tenosynovitis if it gets w orse to send to [facility] Subcutaneous nodule feels benign will karma whitfield observe Referrals Referral Date Details 07/09/2024 07/09/2024, needs co Hugh gloria Next Appt Details Follow Up: 1 Year, Reason: Provider Name:Anderson nava, 07/09/2025 07:00:00 AM, [address] [place] [address], Suite [facility], [place], [place], [phone], Provider Name:Anderson nava, 07/16/2025 11:00:00 AM, [address] [place] [address], [place] [id number], [place], [place], [phone], Progress Notes * NELIAShira HDOB:[birth year] (58 yo F)Acc No.[id number]:07/09/2024 Progress Notes Patient:?Shira Pickens H Provider:?Anderson Maria MD :1965???Age:58 Y???Sex:Female D ate:07/09/2024 Address:[address] [place] [address] [place]jay [id number] Subjective: * Chief Complaints: * ???ANNUAL EXAM * HPI: ???Depression Screening:?PHQ-9?Little interest or pleasure in doing things?Not at all,?Feeling down, depressed, or hopeless?Not at all,?Trouble falling or staying asleep, or sleeping too much?Not at all,?Feeling tired or having little energy?Not at all,?Poor appetite or overeating?Not at all,?Feeling bad about yourself or that you are a failure, or have let yourself or your family down?Not at all,?Trouble concentrating on things, such as reading the newspaper or watching television?Not at all,?Moving or speaking so slowly that other people could have noticed; or the opposite, being so fidgety or restless that you have been moving around a lot more than usual?Not at all,?Thoughts that you would be better off or of hurting yourself in some way?Not at all,?Total Score?0.?Interpretation and Intervention?Depression Screening Findings?Negative,?Follow-Up for Depression?: review of PHQ-9 found negative result, no follow-up needed.? here for yearly evaluation. ???Communication Needs:?Communication Needs?Does the patient have a hearing impairment?No,?Does the patient have a vision impairment??Yes,?If yes, what is the vision impairment??Glasses,?Does the patient have a cognition impairment??No.?SDOH Questions:?SDOH Questions?In the past year have you been worried about losing housing??No,?In the past year have you or any family members you live with been unable to get any of the following when it was really needed? Check all that apply:?None.? * ROS:?General/Constitutional:?Patient denies?fatigue , headache.?Change in appetite?denies.?Chills?denies.?Fever?denies.?Ophthalmologic:?Blurred vision?denies.?Discharge?denies.?Pain?denies.?ENT:?Patient denies?decreased sense of smell , any loss of taste , sore throat.?Decreased hearing?denies.?Sore throat?denies.?Swollen glands?denies.?Endocrine:?Cold intolerance?denies.?Excessive thirst?denies.?Heat intolerance?denies.?Weight loss?denies.?Respiratory:?Cough?denies.?Shortness of breath at rest?denies.?Shortness of breath with exertion?denies.?Wheezing?denies.?Cardiovascular:?Chest pain at rest?denies.?Chest pain with exertion?denies.?Irregular heartbeat?denies.?Shortness of breath?denies.?Gastrointestinal:?Abdominal pain?denies.?Change in bowel habits?denies.?Diarrhea?denies.?Nausea?denies.?Rectal bleeding?denies.?Vomiting?denies .?Genitourinary:?Blood in urine?denies.?Difficulty urinating?denies.?Frequent urination?denies.?Urinary incontinence?Denies.?Musculoskeletal:?Patient denies?muscle aches.?Painful joints?denies.?Weakness?denies.?Peripheral Vascular:?Patient denies?red and blue toes.?Skin:?Dry skin?denies.?Itching?denies.?Denies?Mole(s),? changes in moles, new moles or any lesions of concern.?Denies?Photosensitivity.?Rash?denies.?Neurologic:?Dizziness?denies.?Fainting?denies.?Headache?denies.? * Medical History:? * Surgical History:? * Hospitalization/Major Diagno stic Procedure:? * Family History:?Father: dece ased 42 yrs, cancer.?Mother: 73 yrs, lung cancer.?2 brother(s) , 2 sister(s) . 2 son(s) , 1 daughter(s) - healthy. .? 1 son, No pertinent family medical history, Denies mental health/substance abuse family history brother is an alcoholic, No pertinent family medical history. * Social History:?Tobacco Use:?Tobacco Use/Smoking?Patient is a?former smoker,?How long has it been since you last smoked??> 10 years,?Additional Findings: Tobacco Non-User?Former smoker, currently using no form of tobacco.?Drugs/Alcohol:?Alcohol Screen?Did you have a drink containing alcohol in the past year??Yes,?How often did you have a drink containing alcohol in the past year??Monthly or less (1 point),?How many drinks did you have on a typical day when you were drinking in the past year??1 or 2 drinks (0 point),?How often did you have 6 or more drinks on one occasion in the past year??Never (0 point),?Points?1,?Interpretation?Negative.?Miscellaneous:?Caffeine: yes, frequency:, more than 4 cups per day. Children: yes. no Community involvements. Exercise: yes, walks her dog 4 times a day. Home smoke detector use: yes. Housing: owning. Living with: spouse. Marital status: single, . Occupation: weeks/months/years, works part-time. Pets: cats: dogs: 2 dogs 1 cat. no Travel outside of the [place]. * Medications:?TakingFluticaso ne Propionate (Inhal) 50 MCG/ACT Aerosol Powder Breath Activated 1 puff Inhalation Twice a dayFluticasone-Salmeterol 500-50 MCG/ACT Aerosol Powder Breath Activated INHALE ONE PUFF TWO TIMES A DAY Albuterol Sulfate HFA 108 (90 Base) MCG/ACT Aerosol Solution INHALE TWO PUFFS BY MOUTH EVERY 4-6 HOURS NEEDED Inhalation every 4 hrsTaking Fluticasone Propionate (Inhal) 50 MCG/ACT Aerosol Powder Breath Activated 1 puff Inhalation Twice a dayTaking Fluticasone-Salmeterol 500- 50 MCG/ACT Aerosol Powder Breath Activated INHALE ONE PUFF TWO TIMES A DAY Taking Albuterol Sulfate HFA 108 (90 Base) MCG/ACT Aerosol Solution INHALE TWO PUFFS BY MOUTH EVERY 4-6 HOURS NEEDED Inhalation every 4 hrsNot- Taking/PRNHydrocortisone Mitchel-Pramoxine 2.5-1 % Cream 1 application to affected area as needed Rectal once times a dayNot-Taking/PRN Hydrocortisone Mitchel-Pramoxine 2.5-1 % Cream 1 application to affected area as needed Rectal once times a dayDiscontinuedMethocarbamol 500 MG Tablet 1 tablet orally twice a dayGabapentin 100 MG Capsule 1 capsule Orally three tmes a dayMedication List reviewed and reconciled with the patientDiscontinued Methocarbamol 500 MG Tablet 1 tablet orally twice a dayDiscontinued Gabapentin 100 MG Capsule 1 capsule Orally three tmes a dayMedication List reviewed and reconciled with the patient * Allergies:?tylox: vomitingso ma: vomitingpercocet: vomitingMorphine Sulfate: headacheDilaudid: headacheyes[Allergies Verified] Objective: * Vitals:?Ht: 60, Wt:144, BMI: 28.12, BP:124/70. * ???Past Orders: ???Lab:Complete Blood Count Auto Diff (Order Date - 07/02/2024) (Collection Date - 07/02/2024) ? Value Reference Range ?White Blood Count 6.9 4. 8-10.8 - X10*3/uL ?Red Blood Count 4.95 4.20 -5.50 - X10*6/uL ?Hemoglobin 15.3 12.0-16.0 - g/dl ?Hematocrit 48.6 H 37.0-47.0 - % ?Mean Corpuscular Volume 98.2 H 80.0-98.0 - fL ?Mean Corpuscular Hemoglobin 30.9 27.0-33.0 - pg ?Mean Corpuscular HGB Conc 31.5 31.0-35.0 - g/dl ?Red Cell Distribution Width 13.2 11.0-16.0 - % ?Platelet Count 233 160-4 00 - X10*3/uL ?Mean Platelet Volume 10.8 9.4-12.3 - fL ?Neutrophils Percent Auto 42.4 L 45-73 - % ?Imm Gran Pct Auto 0.3 0. 0-0.4 - % ?Lymphocytes Percent Auto 41.5 H 20-40 - % ?Monocytes Percent Auto 6.9 2-11 - % ?Eosinophils Percent Auto 7.6 H 0-4 - % ?Basophils Percent Auto 1.3 0-2 - % ?NRBC Pct Auto 0.0 0.0-0. 2 - /100WBC ?Neutrophils Absolute Auto 2.9 2.0-8.3 - x10*3/uL ?Imm Gran Abs Auto 0.02 0. 00-0.03 - X10*3/uL ?Lymphocytes Absolute Auto 2.9 1.2-4.9 - X10*3/uL ?Monocytes Absolute Auto 0.5 0.1-1.2 - X10*3/uL ?Eosinophils Absolute Auto 0.5 H 0.0-0.4 - X10*3/uL ?Basophils Absolute Auto 0.1 0.0-0.2 - X10*3/uL ?NRBC Abs Auto 0.000 0.0-0. 012 - X10*3/uL ???Lab:Comprehensive Garrison. P zoë Fast (Order Date - 07/02/2024) (Collection Date - 07/02/2024) ? Value Reference Range ?Sodium 144 135-145 - mmo l/L ?Bilirubin Total 0.7 0.0- 1.0 - mg/dL ?Aspartate Amino Transferase 37 H 5-31 - U/L ?Alanine Aminotransferase 31 0-31 - U/L ?Total Protein 7.9 6.5-8. 0 - g/dL ?Albumin Level 4.3 3.5-5. 0 - g/dL ?Alkaline Phosphatase 84 39-117 - U/L ?Potassium 4.6 3.3-5.1 - mmol/L ?Chloride 105 96-108 - mm ol/L ?Carbon Dioxide 30 H 22-29 - mmol/L ?Anion Gap 14 12-20 - ?Blood Urea Nitrogen 17 H 9-16 - mg/dL ?Creatinine 0.99 0.5-1.4 - mg/dL ?Estimated Glomerular Filt Rate 57 - ?Glucose Fasting 97 60-9 9 - mg/dL ?Calcium 9.7 8.4-10.2 - m g/dL ???Lab:Lipid Panel (Order Da 07/02/2024) (Collection Date - 07/02/2024) ? Value Reference Range ?Triglycerides 74 <150 - mg/dL ?Cholesterol 215 H <200 - m g/dL ?LDL Cholesterol Calculated 142 H <100 - mg/dL ?HDL Cholesterol 59 >40 - mg/dL ???Lab:Vitamin D 25-OH Total (Order Date 07/02/2024) (Collection Date - 07/02/2024) ? Value Reference Range ?Vitamin D 25-OH Total 35.8 >30 - ng/mL * Examination: ???General Examination: ?GENERAL APPEARANCE:?well developed, well nourished, in no acute distress.?HEAD:?normocephalic, atraumatic.?EYES:?pupils equal, round, reactive to light and accommodation, sclera non-icteric.?EARS:?normal.?ORAL CAVITY:?mucosa moist.?THROAT:?clear.?NECK/THYROID:?neck supple, full range of motion, no cervical lymphadenopathy, no bruits.?SKIN:?warm and dry, no suspicious lesions.?HEART:?regular rate and rhythm, S1, S2 normal, no murmurs.?LUNGS:?clear to auscultation bilaterally.?BREASTS:?No mass, no lump.?ABDOMEN:?soft, nontender, nondistended, bowel sounds present, normal, no organomegaly , no masses palpable.?RECTAL EXAM:?no masses palpable , stool guaiac negative.?FEMALE GENITOURINARY:?rt labia majora with a 3 mm sub cutaneous nodule.?EXTREMITIES:?no clubbing, cyanosis, or edema.?NEUROLOGIC:?nonfocal, motor strength normal upper and lower extremities, sensory exam intact.? Assessment: * Assessment: 1.?Annual visit for general adult medical examination with abnormal findings - Z00.01 (Primary)?2.?De Quervain's tenosynovitis - M65.4?3.?Subcutaneous nodule - R22.9? Plan: * Treatment: 2.?De Quervain's tenosynovit is? Notes: if it gets worse to send to [facility]?? 3.?Subcutaneous nodule? Notes: feels benign will just observe?? 4.?Others? Referral To:Hugh Johns??Gastroenterology ?Reason:needs colonoscopy * Procedure Codes:? * Follow Up:?1 Year * * Sign off status: Completed true * Provider:?Anderson Maria MD Date:?1 09/09/2023 Generated for Printi ng/Govindg/eTransmitting on:?01/07/2025 05:59 PM EDT History and Physical Notes * HPI (History of Present Illness) Category Sub-Category Detail Notes Category Not es Depression Screening PHQ-9 Little inte rest or pleasure in doing things: Not at all here for yearly evaluation Feeling down, depressed, or hopeless: No t [...] patient have a cognition impair ment?: No Examination Category Sub-Category Detail Notes Category Not es General Examination GENERAL APPEARANCE: well dev eloped, [...] sub cutaneous nodule ORAL CAVITY: mucosa moist Consultation Request Notes Referral Date Referring Provider Referred Provider Not paresh 07/09/2024 Anderson Maria Robert needs colo noscopy
[2025-02-05 08:20] VITALS: BMI 26.8
[2025-02-05 08:40] VITALS: BP 137/77; PULSE 81; RESP 16; TEMP 36.2; O2SAT 97
[2025-02-05] MEDS: Lactated Ringers 1,000 ML 100 ML IVCONT (08:45)
--- NOTE | 2025-02-05 09:28 | HO.ANESPROP2 ---
HPI - Anesthesia Eval Consult details Narrative: colon PMFSH Active Problems Active Problems: All Active Problems Vitamin D deficiency (Acute) Osteoporosis (Acute) Past Medical History Medical History Vitamin D deficiency Osteoporosis Family History Family History Father Cancer Mother Lung cancer Family history of problems with anesthesia: No Surgical History Surgical History H/O colonoscopy Hx of cholecystectomy Hx of tonsillectomy Hx of laparoscopy Hx of tubal ligation Hx of bilateral salpingo-oophorectomy History of Problems with Anesthesia: No Social History Social History Patient Tobacco Use Status: Never used Tobacco Use of substances other than those prescribed or required for medical reasons: No Advance Directives: No Advance Directives Information Provided: Yes Meds Allergies Allergy/AdvReac Type Severity Reaction Status Date / Time aspirin (From Soma Compound) Allergy Mild NAUSE Verified 09/14/20 13:38 VOMITING carisoprodol (From Soma Allergy Mild NAUSE Verified 09/14/20 13:38 Compound) VOMITING oxycodone (From TYLOX) Allergy Unknown NAUSEA & Verified 09/14/20 13:38 VOMITING Active Medications: Current Medications Lactated Ringer's (Lr) 1,000 mls @ 100 mls/hr IVCONT .Q10H DUDLEY Last Admin: 02/05/25 08:45 Dose: 100 mls/hr Sodium Biphosphate/Sodium Phosphate (Sodium Phosphate,Morrill-Dibasic 133 Ml Enema) 133 ml VA ONCE PRN PRN Reason: Poor Colonoscopy Prep Results Home Medications ?Medication ?Instructions ?Recorded ?Confirmed ?Last Taken ?Type albuterol sulfate 90 mcg/actuation 0 mcg inhalation 05/25/20 09/14/20 02/05/25 08:24 History aerosol inhaler fluticasone 500 mcg-salmeterol 50 inhalation 09/14/20 09/14/20 Unknown History mcg/dose blistr powdr for inhalation Exam Height,Weight and Vital Signs: Height 5 ft Weight 62.2 kg Last Vital Signs Temp 97.2 F 02/05/25 08:40 Pulse 81 07/11/25 08:40 Resp 16 02/05/25 08:40 BP 137/77 02/05/25 08:40 Pulse Ox 97 02/05/25 08:40 O2 Del Method Room Air 02/05/25 08:40 Airway Mallampati Class: III TM Dist: <=3cm Neck ROM: Limited Heart: rrr Lungs: cta Assessment and Plan Assessment Anesthesia Assessment: Anesthesia Plan Discussed and Chart Reviewed Final Anesthetic Review Family History of Problems with Anesthesia: No History of Problems with Anesthesia: No NPO: Yes ASA Class: II Final Preanesthetic Review: No Changes in Pt Med Stat, Meds/Allgs Chart Reviewed, Consent Obtained/Reviewed and Anes Risks/Benef Reviewed Patient Risk: Low Procedure Risk: Low Anesthetic Plan Anesthetic Plan: MAC: Disposition: Standard PACU
[2025-02-05 10:27] VITALS: BP 97/50; PULSE 95; RESP 18; TEMP 36.6; O2SAT 93
--- NOTE | 2025-02-05 10:32 | PM.OP ---
Brief Operative Note Date of Service: 02/05/25 Pre-op diagnosis: Screening Post-op diagnosis: other (Diverticulosis) Procedure: Colonoscopy to the cecum Surgeon: Hugh Ingram MD Anesthesia: MAC Was an Drum Dyeing Machine Operator used for this Procedure?: No Estimated blood loss (mL): 0 Pathology: none sent Condition: stable Disposition: PACU
[2025-02-05 10:42] VITALS: BP 117/51; PULSE 71; RESP 16; O2SAT 93
[2025-02-05 10:57] VITALS: BP 128/71; PULSE 76; RESP 18; TEMP 36.2; O2SAT 96
--- NOTE | 2025-02-05 11:00 | OP_ITS ---
DATE OF SERVICE: 02/05/2025 SURGEON: Hugh Ingram MD INDICATIONS: The patient presents for evaluation of colorectal cancer screening. Full consent has been obtained from her for this, including risks of bleeding and perforation. PREOPERATIVE DIAGNOSIS: Colorectal cancer screening. POSTOPERATIVE DIAGNOSIS: PROCEDURE PERFORMED: Colonoscopy to the cecum. ESTIMATED BLOOD LOSS: COMPLICATIONS: ANESTHESIA: Medication used, monitored anesthesia care. ASSISTANTS: SPECIMENS: POSTOPERATIVE DIAGNOSES: Colorectal cancer screening, mild diverticulosis, and internal hemorrhoids. DESCRIPTION OF PROCEDURE: The patient was placed in the left lateral decubitus position. The digital rectal exam revealed no abnormalities. The Olympus video pediatric colonoscope was entered into the rectum and advanced easily to the cecum. Once in the cecum, I did identify normal-appearing cecal pouch with appendiceal orifice and a normal-appearing ileocecal valve. The entire cecum and ileocecal valve appeared normal. Scope was slowly withdrawn assessing all mucosal surfaces carefully. Preparation was excellent. I did not visualize any sign of polyps, colitis, nor angiodysplasia. There was a mild amount of sigmoid diverticulosis. In the rectum, scope was retroflexed visualizing internal hemorrhoids, but no other pathology. The rectal mucosa appeared normal. The scope was straightened and withdrawn from the patient. She tolerated the procedure well and was returned to the recovery area in stable condition. IMPRESSION: 1. Diverticulosis. 2. Internal hemorrhoids. PLAN: Given today's negative colonoscopy and negative family history, I would recommend a repeat colonoscopy in 10 years for further screening. She will otherwise see me on a p.r.n. basis. Hugh Ingram MD RMW/MODL / [id number]
== END 2025-02-05 11:31 | disposition home or self-care (01) ==
PROVIDERS: PCP Internal Medicine; Visit Provider Internal Medicine
PROC: 0DJD8ZZ Inspection of Lower Intestinal Tract, Via Natural or Artificial Opening Endoscopic (ICD-10-PCS; CPT 45378; principal; 2025-02-05 09:30)
DX: Z12.11 Encounter for screening for malignant neoplasm of colon (principal); K57.30 Diverticulosis of large intestine without perforation or abscess without bleeding; K64.8 Other hemorrhoids; M81.0 Age-related osteoporosis without current pathological fracture; E55.9 Vitamin D deficiency, unspecified; J45.909 Unspecified asthma, uncomplicated; Z79.51 Long term (current) use of inhaled steroids; Z79.899 Other long term (current) drug therapy; Z90.49 Acquired absence of other specified parts of digestive tract; Z98.890 Other specified postprocedural states
CPT/HCPCS: 45378; J2003; J2405; J2704

== ENCOUNTER 2025-07-09 07:00 | Outpatient (REF) | payer OTHER, SELFPAY ==
[2025-07-09 10:54] LABS: MANUAL DIFF FLAG NO
[2025-07-09 11:13] LABS: Hematocrit 46.0 % (37.0-47.0); Hemoglobin 14.4 g/dl (12.0-16.0); Imm Gran Abs Auto 0.01 X10*3/uL (0.00-0.03); Imm Gran Pct Auto 0.2 % (0.0-0.4); Lymphocytes Absolute Auto 1.9 X10*3/uL (1.2-4.9); Mean Corpuscular HGB Conc 31.3 g/dl (31.0-35.0); Mean Corpuscular Hemoglobin 30.6 pg (27.0-33.0); Mean Corpuscular Volume 97.9 fL (80.0-98.0); NRBC Abs Auto 0.000 X10*3/uL (0.0-0.012); NRBC Pct Auto 0.0 /100WBC (0.0-0.2); Platelet Count 234 X10*3/uL (160-400); Red Blood Count 4.70 X10*6/uL (4.20-5.50); White Blood Count 6.5 X10*3/uL (4.8-10.8)
[2025-07-09 11:25] LABS: Appearance Urine Clear; Glucose Urine UA Negative (Negative); PH 6.0 (5.0-9.0); Specific Gravity - Urine 1.025 (1.005-1.025); UMIC TRIGGER UACC YES
[2025-07-09 11:48] LABS: Alanine Aminotransferase 30 U/L (0-31); Albumin Level 4.3 g/dL (3.5-5.0); Alkaline Phosphatase 81 U/L (39-117); Anion Gap 12 (12-20); Aspartate Amino Transferase 28 U/L (5-31); Blood Urea Nitrogen 9 mg/dL (9-16); Calcium 9.4 mg/dL (8.4-10.2); Carbon Dioxide 30 mmol/L (22-29); Chloride 105 mmol/L (96-108); Cholesterol 198 mg/dL (<200); Estimated Glomerular Filt Rate > 60; HDL Cholesterol 48 mg/dL (>40); Potassium 4.4 mmol/L (3.3-5.1); Sodium 143 mmol/L (135-145); Total Protein 7.3 g/dL (6.5-8.0); Triglycerides 134 mg/dL (<150)
== END 2025-07-09 07:01 | disposition home or self-care (01) ==
LOC: HO.LNP 07:00
PROVIDERS: Visit Provider Internal Medicine
DX: Z00.00 Encounter for general adult medical examination without abnormal findings (principal); D72.820 Lymphocytosis (symptomatic); I70.0 Atherosclerosis of aorta; E55.9 Vitamin D deficiency, unspecified
CPT/HCPCS: 80053; 80061; 81001; 82306; 85025